=== PATIENT | male | born 1955 | race Caucasian/White ===

== ENCOUNTER 2021-05-15 21:25 | Emergency (ER) | payer MEDICARE, SELFPAY ==
[2021-05-15 21:26] VITALS: BP 135/79; PULSE 73; RESP 16; TEMP 36.4; O2SAT 96; BMI 27.8
[2021-05-15] MEDS: Fluorescein 1 MG STRIP 1 STRIP RIGHT EYE (22:55)
[2021-05-15] MEDS: Tetracaine 0.5% Ophthalmic Bottle 1 DRP RIGHT EYE (22:55)
--- NOTE | 2021-05-15 23:14 | EX.ED.VIS.EY ---
HPI History of Present Illness Chief Complaint: Eye Problem Informant: patient Onset/Context/Timing Location: Right Eye Onset: Yesterday Timing: Continuous Current Severity: Moderate Maximum Severity: Moderate Associated Symptoms Associated Symptoms - Eyes: Foreign body sensation History of injury: Uncertain Narrative Narrative: Patient presents with concern for foreign body in his right eye. Patient states he was working on a car with a friend in [place] yesterday. Last evening he developed pain in the right eye. He has not seen a specific foreign body but states it feels it there is something there. He was wearing glasses while working on the car. [facility] Medical History High cholesterol Myocardial infarct Home Medications atorvastatin [Lipitor] 40 mg PO DAILY 05/15/21 [History Last Taken Unknown] Allergy/AdvReac Type Severity Reaction Status Date / Time No Known Allergies Allergy Verified 05/15/21 21:28 Social History Smoking Status: Former smoker ROS ROS ED Constitutional Constitutional ED: Denies chills or fever(s) Eyes Eyes: Reports other Details: Foreign body sensation right eye ENT ENT ED: Denies sore throat Cardiovascular Cardiovascular: Denies chest pain Respiratory/Chest Respiratory/Chest: Denies cough or dyspnea Gastrointestinal Gastrointestinal: Denies abdominal pain, nausea or vomiting Musculoskeletal Musculoskeletal: Denies back pain Integumentary Denies rash Neurologic Neurologic: Denies headache(s) or weakness Allergic/Immunologic Allergic/Immunologic ED: Denies urticaria EXAM Physical Exam Const Vital Signs: 05/15/21 21:26 Temperature 97.6 F L Temperature Source Temporal Pulse Rate 73 Respiratory Rate 16 Blood Pressure 135/79 H Blood Pressure Mean 97 Pulse Ox 96 Oxygen Delivery Method Room Air Positive well nourished and well developed General Appearance ED: well developed HEENT Reports normocephalic and head/scalp atraumatic Eyes PERRL and EOMs intact bilaterally General Eye ED: Yes normal appearance of both eyes and normal light reflex Alignment: alignment normal Periorbital: periorbital findings normal Eyelid: eyelids normal Conjunctiva: conjunctiva abnormal right injection Slit Lamp: cornea other (Small metallic foreign body noted at the 9 o'clock position.) Neck supple Chest Wall inspection of chest normal and palpation of chest normal Resp normal respiratory effort and clear to auscultation bilaterally Cardio regular rate and regular rhythm GI normal to inspection, nondistended, normoactive bowel sounds Palpation: soft Extremity normal to inspection Neuro oriented x3 and no sensory deficits noted Sensorium / Orientation: alert Motor Exam: strength 5/5 throughout Psych mental status grossly normal Skin no rashes or lesions noted [facility] Treatment and Re-Evaluation Comments:: Tetracaine is applied to the right eye. This does help significantly with the patient's pain. I attempted to remove the foreign body with both a cotton swab as well as a needle. This was unsuccessful. I did speak with Dr. Esparza, on-call for ophthalmology. He will see the patient in the office tomorrow morning at 10 AM. Patient is given gentamicin eyedrops. Discharge Plan Triage Chief Complaint: Eye Problem ED Provider: Tomeka Romero Dx/Rx/DC Orders Clinical Impression: Acute foreign body of cornea Instructions: Corneal Injury Prescriptions: No Action atorvastatin [Lipitor] 40 mg Tablet 40 mg PO DAILY RF: 0 Primary Care Provider: Preethi Ivy Referrals: Preethi Ivy MD [Primary Care Provider] - Satinder Esparza MD [STAFF PHYSICIAN] - As soon as possible Disposition Disposition: Home, Self Care Discharge Date/Time: 05/15/21 23:32
[2021-05-15] MEDS: Gentamicin Sulfate 1 OPTH.BTL 2 DRP RIGHT EYE (23:31)
== END 2021-05-15 23:32 | disposition home or self-care (01) ==
PROVIDERS: Emergency Provider Emergency Medicine; PCP Internal Medicine
DX: T15.01XA Foreign body in cornea, right eye, initial encounter (principal); I25.2 Old myocardial infarction; E78.00 Pure hypercholesterolemia, unspecified; X58.XXXA Exposure to other specified factors, initial encounter; Z79.899 Other long term (current) drug therapy; Z87.891 Personal history of nicotine dependence
CPT/HCPCS: 99283